=== PATIENT | male | born 1980 | race African-American/Black ===

== ENCOUNTER 2022-02-17 06:13 | Day surgery (SDC) | payer OTHER ==
[~2022-02-17] VITALS: Ht 175.3 cm; Wt 89.5 kg
[~2022-02-17 06:13] MED LIST: ASPI325T8 PO; ATOR10TA60 PO; CARB100C4 PO; CHOL500045 PO; DIME240C PO; HYDROmorphone 2 MG/ML INJ. IVP PRN; IV RINGERS,LACTATED 1000ML 1,000 ML IV SCH; PROCHLORPERAZINE 10 MG/2 ML VIAL. IVP PRN; fentaNYL PF VIAL 100 MCG/2 ML VIAL IVP PRN
[2022-02-17 06:21] VITALS: BP 127/74
[2022-02-17] MEDS ORDERED: ROCURONIUM 50 MG/5 ML VIAL. ONE (06:44)
[2022-02-17] MEDS ORDERED: PROPOFOL 10 MG/ML (20ML) VIAL. IV ONE (06:44)
[2022-02-17] MEDS ORDERED: fentaNYL PF VIAL 100 MCG/2 ML VIAL ONE ×3 (06:45→09:30)
[2022-02-17] MEDS ORDERED: MIDAZOLAM HCL/PF 2 MG/2 ML VIAL. ONE (06:48)
[2022-02-17] MEDS ORDERED: BUPIVACAINE MPF 0.5% 30 ML VIAL. ONE (06:57)
[2022-02-17] MEDS ORDERED: EPINEPHrine 1 MG/ML VIAL ONE (06:57)
[2022-02-17] MEDS ORDERED: DEXAMETHASONE SOD PHOS 4 MG/ML VIAL ONE ×2 (06:58→07:06)
[2022-02-17] MEDS ORDERED: LIDOCAINE 2% PF 5 ML VIAL. ONE (06:58)
[2022-02-17] MEDS ORDERED: SUCCINYLCHOLINE 200 MG/10 ML VIAL. ONE (07:02)
[2022-02-17] MEDS ORDERED: ONDANSETRON PF 4 MG/2 ML VIAL. ONE (07:06)
[2022-02-17] MEDS ORDERED: DEXAMETHASONE SOD PHOS 20 MG/5 ML VIAL. ONE (07:06)
[2022-02-17] MEDS ORDERED: GLYCOPYRROLATE 1 MG/5 ML VIAL. ONE (07:45)
--- NOTE | 2022-02-17 07:49 | DISCH ---
DISCHARGE INSTRUCTIONS Condition on Discharge Condition on Discharge: Stable Activity After Discharge Activity Instructions for Disc: Avoid exertion Lifting Instructions after Dis: No pulling or pushing Wound Incision Care Wound/Incision Care: Ice to area for comfort, Change dressing, Do not change dressing Follow-Up Follow up with: Eamon Green 10 to 14 days ISAIAS CAMARENA Jr. DO Feb 17, 2022 07:49
[2022-02-17] MEDS ORDERED: EPINEPHrine VIAL 30 MG/30 ML VIAL ONE (08:11)
--- NOTE | 2022-02-17 08:56 | PDOC4 ---
OPERATIVE NOTE Date: Date: Feb 17, 2022 Pre-Op Diagnosis: Impingement with AC arthrosis rotator cuff tear right shoulder Post-Op Diagnosis: Same Procedure Performed: Right shoulder arthroscopy with subacromial decompression distal clavicle resection 1.8 cm distal clavicle mini open rotator cuff repair Surgeon: Glenny Anesthesia Type: General Blood Loss: 30 cc Specimans Obtained: None Findings: See dictation Complications: None ISAIAS CAMARENA Jr. DO Feb 17, 2022 08:56
[2022-02-17] MEDS: fentaNYL PF VIAL 100 MCG/2 ML VIAL IVP PRN ×2 (09:35→09:51)
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
[2022-02-17] MEDS ORDERED: HYDROcodone/APAP 5/325MG 1 TAB TABLET PO ONE (10:00)
[2022-02-17 10:03] VITALS: BP 155/45
[2022-02-17] MEDS ORDERED: MORPHINE SULFATE 2 MG/ML INJ. ONE (10:07)
[2022-02-17] MEDS: MORPHINE SULFATE 2 MG/ML INJ. IVP PRN ×2 (10:09→10:19)
--- NOTE | 2022-02-17 13:44 | OP ---
DATE OF SURGERY: 02/17/2022 PREOPERATIVE DIAGNOSIS: Acromioclavicular arthrosis with impingement, rotator cuff tear, right shoulder. POSTOPERATIVE DIAGNOSIS: Acromioclavicular arthrosis with impingement, rotator cuff tear, right shoulder. PROCEDURE: Right shoulder arthroscopy with subacromial decompression, distal clavicle resection, mini open rotator cuff repair, resection of 1.5 cm distal clavicle. SURGEON: Adonis Murrieta Jr, DO. CHAIRMAN OF THE BOARD: Lewis Perea. ANESTHESIA: General. COMPLICATIONS: None. ESTIMATED BLOOD LOSS: 30 mL. DESCRIPTION OF PROCEDURE: The patient was taken to the operative suite, given a general anesthetic, placed in the beach chair position. Right shoulder was then prepped and draped in a sterile fashion. Standard posterior portal was established. Glenohumeral joint was visualized. This was noted to be intact as far as the glenoid and humeral surfaces. No significant degeneration of the glenohumeral joint at all. The labral tissue was completely intact with probing with an established anterior portal. The SLAP region was noted to be completely intact. The inferior labrum also intact at this point. The biceps tendon was pristine; however, from the undersurface, there was noted to be retracted tear of the area of the supraspinatus into the infraspinatus at that point. Appeared to be chronic in nature. Therefore, scope was then taken to the subacromial region. Large anterior downsloping was noted. This was decompressed with a subacromial decompression using a lateral portal. The anterior portal was then redirected into the AC joint and the significant changes on the distal clavicle and the undersurface of clavicle resected back. After the distal clavicle was resected for approximately 1.5 cm. Attention was then directed to the rotator cuff, which was noted to have a large tear. Therefore, a mini incision was made through skin and subcutaneous tissues. This was taken through the deltoid fascia, which was split. This was retracted after debridement of the rotator cuff. This was mobilized with a Gary elevator. Then, the [id number] part of the tear was closed. After the longitudinal split was reapproximated 2 [place] were then placed. This was done with Speed bridge technique and this was brought back completed to repair the rotator cuff, was noted to be stable. This was then thoroughly irrigated and suctioned dry. Deltoid split was reapproximated. Superficial tissue and skin was reapproximated. Sterile dressing was applied. The patient was then taken from the operative bed to the postoperative bed, taken to the PACU in stable condition. CRIS/DARIEN DR: Garth TID: [id number]
== END 2022-02-17 10:30 | disposition home or self-care (01) ==
LOC: SURG 06:13 → EEVIPCON 07:30 → SURG 10:30
PROVIDERS: ATTEND Orthopaedic Surgery
DX: M19.011 Primary osteoarthritis, right shoulder (principal); M75.101 Unspecified rotator cuff tear or rupture of right shoulder, not specified as traumatic; E78.00 Pure hypercholesterolemia, unspecified; Z79.899 Other long term (current) drug therapy; Z98.890 Other specified postprocedural states
CPT/HCPCS: 23412; 29822; 29824; A4565; A4928; A4930; C1713; J0171; J0330; J0690; J1100; J2250; J2270; J2405; J2704; J3010; J3490; A4452